=== PATIENT | male | born 1990 | race Caucasian/White ===

== ENCOUNTER 2017-12-17 00:52 | Emergency (ER) | payer SELFPAY ==
[~2017-12-17] VITALS: Ht 175.3 cm; Wt 90.7 kg
--- NOTE | 2017-12-17 01:05 | NUR ---
BBRA; "SMOKED HEROIN IN RESTROOM, FRIENDS CALLED 911" EMS ADMIN 2MG IN AND 2MG IM NARCAN. PT AOX3 RR EVEN AND UNLABORED. NO SOB NOTED. NAD NOTED. NO NDV AT THIS TIME. PT GOWNED AND PLACED ON MONITOR WAITING FOR MD HELM.
--- NOTE | 2017-12-17 01:18 | NUR ---
DR. GONZALEZ AT BEDSIDE. PT REFUSED BLOOD DRAW AND IV INSERTION. RISK AND BENEFITS EXPLAINED X 3. PT STRONGLY AGREES STATES " I DONT THINK I NEED IT AT THIS TIME" AWARE
--- NOTE | 2017-12-17 01:25 | NUR ---
RADIOLOGY AT BEDSIDE FOR CXR
--- NOTE | 2017-12-17 02:36 | NUR ---
Patient discharged to home in stable condition. Written and verbal after care instructions given. Patient verbalizes understanding of instruction. Patient does not wish to proceed with medical care recommended by Dr. Brand . Patient given information related to possible complications, up to and including , which could occur as a result of leaving the hospital at this time. Patient verbalizes understanding of risks involved due to leaving against medical advice. Patient has signed AMA form.
[2017-12-17 02:43] VITALS: BP 116/76
== END 2017-12-17 02:43 | disposition home or self-care (01) ==
LOC: ER 00:53
DX: T40.1X1A Poisoning by heroin, accidental (unintentional), initial encounter (principal); Y92.89 Other specified places as the place of occurrence of the external cause
CPT/HCPCS: 71045-TC; A4606; Z7610